=== PATIENT | male | born 1945 | race Two or more races ===

== ENCOUNTER 2024-01-18 20:52 | Inpatient (IN) | payer OTHER ==
[~2024-01-18] VITALS: Ht 165.1 cm; Wt 74.8 kg
--- NOTE | 2024-01-18 21:15 | NUR ---
PACIENTE ALERTA Y ORIENTADO X3, REFIERE QUE [facility] [place] SEMANA ESTUVO EN [facility] POR FIBRILACION. INDICA QUE CONTINUA CON MOLESTIA EN EL PECHO Y DOLOR DE ALHAJI. SE REALIZA EKG Y SE PRESENTA A DR. ANDREWS.
[2024-01-18] MEDS ORDERED: DILTIAZEM HCL 25 MG/5 ML VIAL IV ONE (21:29)
[2024-01-18] MEDS ORDERED: DILTIAZEM HCL 125MG/25ML VIAL IV SCH (21:30)
--- NOTE | 2024-01-18 21:38 | NUR ---
PTE EVALUADO POR MD [facility] [place] [facility] A PTE SE EDUCA A PTE SOBRE EL SMIM OY PTE REFEIRE ENTENDER. SE LLEVA ACABO ORDENES BAJO MEDIDAS ACEPTICAS. PTE PEND A RESULTADOS DE LABS.
--- NOTE | 2024-01-18 21:39 | NUR ---
PTE SE COLOCA EN MONITOR CARDIACO [facility].
[2024-01-18 21:41] LABS: HEMATOCRIT 41.1 % (39.0-48.0); HEMOGLOBIN 14.2 g/dL (13-16.00); MEAN CELL VOLUME 98.7 fL (80.0-100.00); MEAN CORPUSCULAR HEMOGLOBIN 34.2 pg (27.00-32.0); MEAN CORPUSCULAR HGB CONC 34.6 g/dl (32.0-36.0); PLATELET COUNT 179 K/uL (150-450); RED BLOOD COUNT 4.17 M/uL (4.00-6.00); RED CELL DISTRIBUTION WIDTH 14.8 % (11.5-14.5)
[2024-01-18] MEDS ORDERED: FAMOTIDINE/PF 20 MG/2 ML VIAL IV PUSH ONE (21:45)
[2024-01-18] MEDS ORDERED: ACETAMINOPHEN 500 MG GEL..CAP PO ONE ×2 (21:45→21:48)
[2024-01-18] MEDS ORDERED: FAMOtidine 200mg/20ml VIAL ONE (21:49)
[2024-01-18 22:00] LABS: INR 1.11; PROTHROMBIN TIME 11.6 SECONDS (9.0-11.5)
[2024-01-18] MEDS ORDERED: NITROGLYCERIN IN 5 % DEXTROSE 50 MG/250 ML BOTTLE IV ONE (22:27)
[2024-01-18] MEDS ORDERED: NITROGLYCERIN 250 ML IV SCH (22:30)
[2024-01-18 22:39] LABS: ANION GAP 8 (10.0-20.0); BLOOD UREA NITROGEN 16 mg/dL (7-18); BUN CREA RATIO 14 (7.0-25.0); CALCIUM 9.1 mg/dL (8.5-10.1); CARBON DIOXIDE 28 mEq/L (21-32); CHLORIDE 108 mmol/L (98-107); CREATININE SERUM 1.17 mg/dL (0.70-1.30); DIGOXIN < 0.10 ng/ml (0.8-2.0); GFR 59.98; GLUCOSE FASTING 181 mg/dL (65-100); OSMOLALITY SERUM 285 MOSM/KG (275-295); POTASSIUM 3.85 mEq/L (3.5-5.1); SODIUM 140 mmol/L (136-145)
[2024-01-18] MEDS ORDERED: APIXABAN 5 MG TABLET PO SCH (22:52)
[2024-01-18] MEDS ORDERED: ATORVASTATIN CALCIUM 40 MG TABLET PO SCH (22:53)
[2024-01-18] MEDS ORDERED: ACETAMINOPHEN 500 MG GEL..CAP PO PRN (23:00)
[2024-01-18] MEDS ORDERED: AMIODARONE IN DEXTROSE,ISO-OSM 360 MG/200 ML IV.SOLN IV ONE (23:19)
[2024-01-19 01:06] LABS: URINE APPEARANCE Clear; URINE BILIRRUBIN Negative (NEGATIVE); URINE BLOOD Negative; URINE COLOR Yellow; URINE GLUCOSE Negative (NEGATIVE); URINE LEUKOCYTE Trace; URINE NITRATE Negative; URINE PROTEIN Negative (NEGATIVE)
[2024-01-19 01:10] LABS: URINE BACTERIA 151.1 uL (0.0-1933); URINE EPITHELIAL CELLS 1.6 uL (0.0-38.8); URINE RBC 7.7 uL (0.0-20.8); URINE WBC 9.8 uL (0.0-23.2)
[2024-01-19 07:06] LABS: CHOL HDL RATIO 2.1 (0-5.0); TSH 1.03 uIU/mL (0.358-3.74)
[2024-01-19] MEDS ORDERED: FAMOTIDINE/PF 20 MG/2 ML VIAL ONE (08:02)
[2024-01-19] MEDS ORDERED: NITROGLYCERIN IN 5 % DEXTROSE 250 ML IV SCH (09:00)
[2024-01-19] MEDS ORDERED: FINASTERIDE 5 MG TABLET PO SCH (09:00)
[2024-01-19] MEDS ORDERED: FAMOTIDINE/PF 20 MG in 0.9 % SODIUM CHLORIDE 8 ML IV PUSH SCH (09:00)
[2024-01-19] MEDS ORDERED: TAMSULOSIN HCL 0.4 MG CAP PO SCH (09:00)
[2024-01-19] MEDS ORDERED: ISOSORBIDE MONONITRATE 30 MG TABLET PO SCH (11:36)
[2024-01-19] MEDS ORDERED: PANTOPRAZOLE SODIUM 40 MG TABLET.DR PO SCH (11:37)
[2024-01-19] MEDS ORDERED: METOPROLOL SUCCINATE 50 MG TAB.SR.24H PO SCH (11:38)
[2024-01-19] MEDS ORDERED: CLONAZEPAM 0.5 MG TABLET PO SCH (21:00)
[2024-01-21] MEDS ORDERED: AMIODARONE HCL 200 MG TABLET PO SCH (09:00)
[2024-01-21 12:55] LABS: HEMATOCRIT 38.4 % (39.0-48.0); HEMOGLOBIN 13.1 g/dL (13-16.00); MEAN CORPUSCULAR HEMOGLOBIN 33.6 pg (27.00-32.0); MEAN CORPUSCULAR HGB CONC 34.2 g/dl (32.0-36.0); PLATELET COUNT 163 K/uL (150-450); RED BLOOD COUNT 3.91 M/uL (4.00-6.00); RED CELL DISTRIBUTION WIDTH 14.7 % (11.5-14.5)
[2024-01-21 13:53] LABS: ALBUMIN 3.3 gm/dL (3.4-5.0); BILIRUBIN TOTAL 0.75 mg/dL (0.3-1.2); CALCIUM 9.2 mg/dL (8.5-10.1); CREATININE SERUM 0.93 mg/dL (0.70-1.30); GFR 78.18; GLOBULINA 3.3 G/DL (2.4-3.5); POTASSIUM 4.77 mEq/L (3.5-5.1); TOTAL PROTEIN 6.6 gm/dL (6.4-8.2)
[2024-01-21] MEDS ORDERED: AMIODARONE HCL 50 MG/ML AMPUL IV SCH (14:00)
[2024-01-21] MEDS ORDERED: AMIODARONE HCL 50 MG/ML AMPUL IV ONE (14:07)
[2024-01-22] MEDS ORDERED: METOPROLOL TARTRATE 25 MG TABLET PO SCH (01:00)
[2024-01-22] MEDS ORDERED: MINERAL OIL 30 ML BLIST.PACK PO NR (15:15)
[2024-01-22] MEDS ORDERED: LACTULOSE 20 G/30 ML BLIST.PACK PO NR (15:15)
[2024-01-22] MEDS ORDERED: MAGNESIUM HYDROXIDE 30 ML BLIST.PACK PO NR (15:15)
[2024-01-22] MEDS ORDERED: BUMETANIDE 0.5 MG TABLET PO ONE (15:30)
[2024-01-22] MEDS ORDERED: LOSARTAN POTASSIUM 25 MG TABLET PO SCH (17:00)
[2024-01-22] MEDS ORDERED: AMIODARONE HCL 200 MG TABLET PO SCH (17:00)
[2024-01-22] MEDS ORDERED: ACETAMINOPHEN 325 MG TABLET PO ONE ×2 (21:45→22:15)
[2024-01-23] MEDS ORDERED: BUMETANIDE 0.5 MG TABLET PO SCH (09:00)
== END 2024-01-23 15:38 | disposition designated cancer center or children's hospital (05) | DRG 308 ==
LOC: ER 20:54 → MEDJ 22:54
PROVIDERS: Emergency Medicine; General Practice; ADMIT Internal Medicine; ATTEND Internal Medicine
PROC: 4A12X4Z Monitoring of Cardiac Electrical Activity, External Approach (ICD-10-PCS; principal; 2024-01-18)
PROC: B54DZZZ Ultrasonography of Bilateral Lower Extremity Veins (ICD-10-PCS; 2024-01-19)
DX: I48.20 Chronic atrial fibrillation, unspecified (principal); I50.21 Acute systolic (congestive) heart failure; I11.0 Hypertensive heart disease with heart failure; I43 Cardiomyopathy in diseases classified elsewhere; R60.0 Localized edema; K59.09 Other constipation; Z74.01 Bed confinement status; Z79.01 Long term (current) use of anticoagulants